=== PATIENT | female | born 1965 | race Hispanic/Latino ===

== ENCOUNTER 2019-02-27 07:00 | Day surgery (SDC) | payer OTHER ==
[2019-02-26 15:34] LABS: BASOPHILS % (AUTO) 0.5 % (0.0-5.0); EOSINOPHILS % (AUTO) 1.3 % (0.0-8.0); HEMATOCRIT 38.6 % (36-48); LYMPHOCYTES % (AUTO) 30.2 % (21.0-51.0); MEAN CORPUSCULAR HEMOGLOBIN 26.6 pg (27.0-33.0); MEAN CORPUSCULAR HGB CONC 32.4 g/dL (32.0-36.0); MEAN CORPUSCULAR VOLUME 82.1 fL (79-99); MONOCYTES % (AUTO) 5.6 % (3.0-13.0); NEUTROPHILS % (AUTO) 62.4 % (40.0-77.0); PLATELET COUNT (AUTO) 312 K/uL (130-400); RED CELL DISTRIBUTION WIDTH 14.7 % (11.0-15.5); WHITE BLOOD COUNT (AUTO) 6.9 K/uL (4.8-10.8)
[2019-02-26 15:40] LABS: CREATININE 0.7 mg/dL (0.5-1.5); POTASSIUM 4.2 mmol/L (3.5-5.1)
[2019-02-26 16:14] VITALS: BP 127/68
[2019-02-27] VITALS (13 sets, daily range): BP systolic 102–119; BP diastolic 55–90
[~2019-02-27] VITALS: Ht 162.6 cm; Wt 86.9 kg
[~2019-02-27 07:00] MED LIST: ASPI-555 PO; CEFAZOLIN SODIUM 1 GM VIAL IVP SCH; LEVO100 PO; METF500S7 PO; OMEP40CA37 PO; SUCR1TAB2 PO; TRAM50TA4 PO; VIT D3
[2019-02-27] MEDS ORDERED: LIDOCAINE PF 2% 5ML ABBOJECT ONE (07:17)
[2019-02-27] MEDS ORDERED: SUCCINYLCHOLINE 200MG/10ML SYR ONE ×2 (07:17→09:00)
[2019-02-27] MEDS ORDERED: PROPOFOL 10 MG/ML 20ML VIAL IV ONE (07:17)
[2019-02-27] MEDS ORDERED: ONDANSETRON HCL 4 MG/2 ML VIAL ONE (07:18)
[2019-02-27] MEDS ORDERED: NEOSTIGMINE 5MG/5ML SYR IV ONE (07:18)
[2019-02-27] MEDS ORDERED: GLYCOPYRROLATE 1 MG/5 ML SYRINGE ONE (07:18)
[2019-02-27] MEDS ORDERED: MIDAZOLAM HCL 1 MG/ML 2ML VIAL ONE (07:18)
[2019-02-27] MEDS ORDERED: DEXAMETHASONE SOD PHOSPHATE 10MG/ML 1ML VIAL ONE (07:18)
[2019-02-27] MEDS ORDERED: FENTANYL CITRATE PF 50 MCG/1 ML 2ML VIAL ONE ×2 (07:19→09:04)
[2019-02-27] MEDS ORDERED: ROCURONIUM 10MG/1ML SYR 10 MG/ML ML ONE (07:19)
[2019-02-27] MEDS ORDERED: CLINDAMYCIN 900 MG/D5% WATER 50 ML IV ONE (07:50)
[2019-02-27] MEDS ORDERED: SODIUM CHLORIDE 0.9% 1000ML 1,000 ML IV ONE (07:51)
[2019-02-27] MEDS ORDERED: EPHEDRINE SULFATE 50 MG/ML AMPULE ONE ×2 (08:28→08:38)
[2019-02-27] MEDS ORDERED: LIDOCAINE HCL 4% LTA SOL 4 ML VIAL ONE (08:59)
[2019-02-27] MEDS ORDERED: PHENYLEPHRINE HCL 10 MG/ML 1ML VIAL IV ONE (08:59)
[2019-02-27] MEDS ORDERED: NALOXONE HCL 0.4 MG/1 ML ML ONE (09:14)
[2019-02-27] MEDS ORDERED: TYL3 PO (09:23)
[2019-02-27] MEDS ORDERED: CEPH500B PO (09:23)
[2019-02-27] MEDS ORDERED: MEPERIDINE-PF 25 MG/ML SYG ONE ×2 (09:30→09:43)
[2019-02-27] MEDS ORDERED: KETOROLAC TROMETHAMINE 30MG/ML ONE (09:43)
--- NOTE | 2019-02-27 11:00 | NUR ---
D/C PT LEFT VIA WHEEL CHAIR IN PVT CAR WITH DAUGHTER. SCRIPT GIVEN TO DAUGHTER . F/U AND D/C INSTRUCTION GIVEN TO PT.
== END 2019-02-27 11:00 ==
LOC: DAH 07:00
PROVIDERS: ATTEND Orthopaedic Surgery
DX: M23.221 Derangement of posterior horn of medial meniscus due to old tear or injury, right knee (principal); M23.241 Derangement of anterior horn of lateral meniscus due to old tear or injury, right knee; M94.261 Chondromalacia, right knee; G89.29 Other chronic pain; K21.9 Gastro-esophageal reflux disease without esophagitis; E66.9 Obesity, unspecified; E11.9 Type 2 diabetes mellitus without complications; Z88.8 Allergy status to other drugs, medicaments and biological substances; Z88.0 Allergy status to penicillin; Z98.890 Other specified postprocedural states; Z79.899 Other long term (current) drug therapy
CPT/HCPCS: 29880; 36415; 80048; 82948 ×2; 85025; A4606; A4649 ×2; A4930; A6223; J0330 ×2; J1100; J1885; J2001; J2175 ×2; J2250; J2310; J2370; J2405; J2704; J2710; J3010 ×2; J3490 ×3; J7030

== ENCOUNTER → 2019-07-24 | Outpatient (CLI) | payer OTHER ==
[~2019-07-24] MED LIST changes: -CEFAZOLIN SODIUM 1 GM VIAL IVP SCH; +CEPH500B PO; +OMEP40CA13 PO; -OMEP40CA37 PO; +TYL3 PO
[2019-07-24 15:18] LABS: CREATININE 0.6 mg/dL (0.5-1.5)
== END | disposition home or self-care (01) ==
LOC: LAB 14:29
PROVIDERS: ATTEND Internal Medicine Gastroenterology
DX: K85.00 Idiopathic acute pancreatitis without necrosis or infection (principal)
CPT/HCPCS: 36415; 82565; 84520

== ENCOUNTER → 2019-08-03 | Outpatient (CLI) | payer OTHER ==
[~2019-08-03] MED LIST changes: +IOHEXOL 350 MG/ML 100ML INFUS..BTL IV ONE
== END | disposition home or self-care (01) ==
LOC: RAH 08:48
PROVIDERS: ATTEND Internal Medicine Gastroenterology
DX: K57.30 Diverticulosis of large intestine without perforation or abscess without bleeding (principal); K85.00 Idiopathic acute pancreatitis without necrosis or infection; Z90.49 Acquired absence of other specified parts of digestive tract
CPT/HCPCS: 74170; Q9967

== ENCOUNTER → 2019-09-22 | Outpatient (CLI) | payer OTHER ==
[~2019-09-22] MED LIST changes: -IOHEXOL 350 MG/ML 100ML INFUS..BTL IV ONE
== END | disposition home or self-care (01) ==
LOC: RAH 11:09
PROVIDERS: ATTEND Internal Medicine
DX: R11.2 Nausea with vomiting, unspecified (principal); R14.0 Abdominal distension (gaseous)
CPT/HCPCS: 78264; A9541

== ENCOUNTER → 2024-06-30 | Outpatient (CLI) | payer OTHER ==
[~2024-06-30] MED LIST changes: -ASPI-555 PO; +ASPI-556 PO; -METF500S7 PO; +METF500S9 PO; -OMEP40CA13 PO; +OMEP40CA21 PO
== END | disposition home or self-care (01) ==
LOC: RAH 09:45
PROVIDERS: ATTEND Family Medicine
DX: R92.333 Mammographic heterogeneous density, bilateral breasts (principal); R92.1 Mammographic calcification found on diagnostic imaging of breast; R92.8 Other abnormal and inconclusive findings on diagnostic imaging of breast
CPT/HCPCS: 77065